=== PATIENT | male | born 1950 | race Caucasian/White ===

== ENCOUNTER 2016-09-15 18:38 | Emergency (ER) | payer SELFPAY ==
[~2016-09-15] VITALS: Ht 170.2 cm; Wt 75.0 kg
[2016-09-15] MEDS ORDERED: ASPIRIN 81MG TABLET PO STA (19:17)
[2016-09-15] MEDS ORDERED: FAMOTIDINE 20MG/2ML VIAL IV ONE (19:30)
[2016-09-15 19:39] LABS: BASOPHILS % 0.8 % (0.0-2.0); EOSINOPHILS % 2.9 % (0.0-5.0); HEMATOCRIT. 41.3 % (42.0-52.0); HEMOGLOBIN. 13.7 g/dL (14.0-18.0); LYMPHOCYTES % 34.4 % (20.0-50.0); MEAN CORPUSCULAR HEMOGLOBIN 26.5 pg (28.0-32.0); MEAN CORPUSCULAR VOLUME 79.9 fL (80.0-94.0); MEAN PLATELET VOLUME 8.4 fl (7.4-10.4); MONOCYTES % 8.4 % (2.0-8.0); NEUTROPHILS % 53.5 % (40.0-76.0); PLATELET 223 x1000/uL (130-400); RED BLOOD CELL COUNT 5.17 mill/uL (4.7-6.1); RED CELL DISTRIBUTION WIDTH 14.3 % (11.6-14.6)
[2016-09-15 19:44] LABS: PARTIAL THROMBOPLASTIN TIME 26.5 sec (24.0-34.0); PROTHROMBIN TIME 10.5 sec
[2016-09-15 19:59] LABS: CARBON DIOXIDE 30 mEq/L (21-32); CHLORIDE 105 mEq/L (98-107); HDL CHOLESTEROL 51 mg/dL (40-59); LDL CHOLESTEROL 56 mg/dL (5-100)
[2016-09-15 20:00] LABS: TROPONIN I 0.04 ng/mL (0.00-0.04)
[2016-09-15 20:40] VITALS: BP 131/83
== END 2016-09-15 21:05 | disposition home or self-care (01) ==
LOC: ER 21:01 → CANBEDREQ 22:30
DX: K21.9 Gastro-esophageal reflux disease without esophagitis (principal); I10 Essential (primary) hypertension; I25.10 Atherosclerotic heart disease of native coronary artery without angina pectoris
CPT/HCPCS: 36415; 80053; 80061; 83690; 83880; 84443; 84484; 85025; 85610; 85730; 93005; 99285

== ENCOUNTER 2020-02-12 08:05 | Inpatient (IN) | payer BC, MEDICARE ==
[~2020-02-12] VITALS: Ht 182.9 cm; Wt 90.7 kg
[2020-02-12] VITALS (10 sets, daily range): BP systolic 94–141; BP diastolic 44–71
[2020-02-12] MEDS ORDERED: SODIUM CHLORIDE 0.9% 1,000 ML IV ONE (08:30)
[2020-02-12 08:52] LABS: EOSINOPHILS % 2.5 % (0.0-5.0); HEMATOCRIT. 41.3 % (42.0-52.0); HEMOGLOBIN. 13.5 g/dL (14.0-18.0); LYMPHOCYTES % 41.9 % (20.0-50.0); MEAN CORPUSCULAR HEMOGLOBIN 26.6 pg (28.0-32.0); MEAN CORPUSCULAR VOLUME 81.4 fL (80.0-94.0); MEAN PLATELET VOLUME 9.2 fl (7.4-10.4); MONOCYTES % 9.3 % (2.0-8.0); NEUTROPHILS % 45.3 % (40.0-76.0); PLATELET 204 x1000/uL (130-400); RED BLOOD CELL COUNT 5.07 mill/uL (4.7-6.1); RED CELL DISTRIBUTION WIDTH 15.2 % (11.6-14.6)
[2020-02-12 09:04] LABS: CHLORIDE 108 mEq/L (98-107)
[2020-02-12 09:41] LABS: PARTIAL THROMBOPLASTIN TIME 27.5 sec (23.4-31.0); PROTHROMBIN TIME 10.5 sec (9.6-11.0)
[2020-02-12] MEDS ORDERED: ASPIRIN 81MG TABLET PO ONE (09:45)
[2020-02-12] MEDS ORDERED: NICARDIPINE 100MCG/ML 10ML VIAL (CATH LAB) IV ONE (12:00)
[2020-02-12] MEDS ORDERED: HEPARIN SODIUM 1,000 UNIT/1ML VIAL IV ONE (12:00)
[2020-02-12] MEDS ORDERED: NITROGLYCERIN 50MCG/ML 10ML VIAL (CATH LAB) IV ONE (12:00)
[2020-02-12] MEDS ORDERED: LIDOCAINE HCL 1% 20ML VIAL (Pyxis) INJ ONE (12:38)
[2020-02-12] MEDS ORDERED: ASPIRIN/SOD BICARB/CITRIC ACID 324MG TAB EFF ONE (12:38)
[2020-02-12] MEDS ORDERED: IODIXANOL 320MG/ML 100 ML BOTTLE IV ONE (12:39)
[2020-02-12] MEDS ORDERED: FENTANYL CITRATE/PF 50MCG/ML 2ML VIAL ONE (12:58)
[2020-02-12] MEDS ORDERED: MIDAZOLAM HCL 2 MG/2 ML VIAL ONE ×2 (12:58→13:17)
[2020-02-12] MEDS ORDERED: ATROPINE SULFATE 1MG/10ML SYR IV PRN (13:30)
[2020-02-12] MEDS ORDERED: ACETAMINOPHEN 325MG TABLET PO PRN (13:30)
[2020-02-12] MEDS ORDERED: MORPHINE SULFATE 2 MG/ML CPJ (NOT FOR IM USE) IV PRN (13:30)
[2020-02-12] MEDS ORDERED: ONDANSETRON HCL 4MG/2ML INJ IV PRN (13:30)
[2020-02-12] MEDS ORDERED: SODIUM CHLORIDE 0.45% 1,000 ML IV ONE (13:30)
[2020-02-12] MEDS: METOPROLOL TARTRATE 25MG TABLET PO SCH (17:17)
[2020-02-13] VITALS (11 sets, daily range): BP systolic 90–140; BP diastolic 47–89
[2020-02-13 06:48] LABS: EOSINOPHILS % 2.7 % (0.0-5.0); HEMATOCRIT. 37.5 % (42.0-52.0); HEMOGLOBIN. 12.5 g/dL (14.0-18.0); LYMPHOCYTES % 36.2 % (20.0-50.0); MEAN PLATELET VOLUME 9.4 fl (7.4-10.4); MONOCYTES % 10.9 % (2.0-8.0); NEUTROPHILS % 49.2 % (40.0-76.0); PLATELET 188 x1000/uL (130-400); RED BLOOD CELL COUNT 4.63 mill/uL (4.7-6.1); RED CELL DISTRIBUTION WIDTH 15.3 % (11.6-14.6)
[2020-02-13 07:19] LABS: CHLORIDE 108 mEq/L (98-107)
[2020-02-13] MEDS: METOPROLOL TARTRATE 25MG TABLET PO SCH ×2 (07:56→09:00)
[2020-02-13] MEDS: LOSARTAN POTASSIUM 25 MG TABLET PO SCH ×2 (07:56→09:00)
== END 2020-02-13 09:50 | disposition home or self-care (01) | DRG 287 ==
LOC: ER 08:05 → ENRESERV 11:44 → 3WST 13:04
PROVIDERS: ADMIT Specialist; ATTEND Specialist
PROC: 4A023N7 Measurement of Cardiac Sampling and Pressure, Left Heart, Percutaneous Approach (ICD-10-PCS; principal; 2020-02-12)
PROC: B2111ZZ Fluoroscopy of Multiple Coronary Arteries using Low Osmolar Contrast (ICD-10-PCS; 2020-02-12)
PROC: B2151ZZ Fluoroscopy of Left Heart using Low Osmolar Contrast (ICD-10-PCS; 2020-02-12)
DX: I25.10 Atherosclerotic heart disease of native coronary artery without angina pectoris (principal); E11.9 Type 2 diabetes mellitus without complications; E78.00 Pure hypercholesterolemia, unspecified; E78.5 Hyperlipidemia, unspecified; I49.3 Ventricular premature depolarization; Z20.828 Contact with and (suspected) exposure to other viral communicable diseases; I10 Essential (primary) hypertension; Z79.82 Long term (current) use of aspirin; Z79.84 Long term (current) use of oral hypoglycemic drugs; Z90.49 Acquired absence of other specified parts of digestive tract; Z79.899 Other long term (current) drug therapy
CPT/HCPCS: 36415; 71045; 80048; 80053; 83036; 83735; 84484; 85025; 86850; 86900; 87426; 93005; 93458; 99285; C1760; C1769; C1887; C1893; J1644; J2250; J3010; J3490; J7030; Q9967